=== PATIENT | female | born 1965 | race Caucasian/White ===

== ENCOUNTER 2018-05-24 10:47 | Emergency (ER) | payer BC ==
--- NOTE | 2018-05-24 11:38 | EDM.PDOC ---
ED HPI GENERAL MEDICAL PROBLEM - General Chief Complaint: Skin Complaint Stated Complaint: POSSIBLE INFECTION, SWELLING IN FACE Time Seen by Provider: 05/24/18 11:20 Source of Information: Reports: Patient, Family History Limitations: Reports: No Limitations - History of Present Illness INITIAL COMMENTS - FREE TEXT/NARRATIVE: 52-year-old female who underwent Mohs procedure on the right side of her face 3 days ago, is having significant edema and is concerned about infection. She called the call number for the surgeon and they recommended her be checked. She has no fever, no drainage. Onset: Gradual Severity: Mild - Related Data Allergies Allergy/AdvReac Type Severity Reaction Status Date / Time erythromycin base Allergy Nausea Verified 05/24/18 11:14 Home Meds: Home Meds Cephalexin [Keflex] 500 mg PO BID 05/24/18 [History] Lisinopril 10 mg PO DAILY 05/24/18 [History] Past Medical History Cardiovascular History: Reports: Hypertension Oncologic (Cancer) History: Reports: Other (See Below) Other Oncologic History: skin biopsy on right side of nose - Infectious Disease History Infectious Disease History: Reports: Chicken Pox Social & Family History - Tobacco Use Smoking Status *Q: Never Smoker - Caffeine Use Caffeine Use: Reports: Coffee, Soda, Tea - Recreational Drug Use Recreational Drug Use: No ED ROS GENERAL - Review of Systems Review Of Systems: See Below Constitutional: Denies: Fever HEENT: Denies: Dental Pain Respiratory: Denies: Shortness of Breath Cardiovascular: Denies: Chest Pain GI/Abdominal: Denies: Nausea, Vomiting ED EXAM, SKIN/RASH Exam: See Below Exam Limited By: No Limitations General Appearance: Alert, No Apparent Distress Eye Exam: Right Eye: Periorbital Changes (There is a moderate amount of periorbital edema on the right) Head: Other (Edema is present on the right side of the face and upper right lip , it is not warm to touch or significantly erythematous) Course - Vital Signs Last Recorded V/S: Last Vital Signs Temp 97.3 F 05/24/18 11:10 Pulse 64 05/24/18 11:10 Resp 18 05/24/18 11:10 BP 130/83 05/24/18 11:10 Pulse Ox 100 05/24/18 11:10 - Re-Assessments/Exams Free Text/Narrative Re-Assessment/Exam: 05/24/18 11:37 Patient is already on cephalexin, there appears to be quite a bit of postoperative inflammation and reaction but I do not appreciate infection. Patient was reassured and will return if worsening. Departure - Departure Time of Disposition: 11:52 Disposition: Home, Self-Care 01 Condition: Good Clinical Impression: Postoperative edema - Discharge Information Instructions: Edema, [id number] Referrals: PCP,None [Primary Care Provider] - Forms: ED Department Discharge Care Plan Goals: Continue with your current treatment, cool compresses may help. Return if worsening such as fever, increased redness or pain or the wound starts draining purulent material.
== END 2018-05-24 11:45 | disposition home or self-care (01) ==
LOC: JP.ED 10:47
DX: L76.82 Other postprocedural complications of skin and subcutaneous tissue (principal); R60.9 Edema, unspecified; Z88.1 Allergy status to other antibiotic agents; Z79.899 Other long term (current) drug therapy; I10 Essential (primary) hypertension
CPT/HCPCS: 99285